=== PATIENT | female | born 1940 | race Asian ===

== ENCOUNTER 2017-08-27 08:00 | Outpatient (CLI) | payer MEDICARE, MEDICAID ==
[2017-08-27 19:09] LABS: BASOPHILS % (AUTO) 0.6 %; EOSINOPHILS # (AUTO) 0.2 10^3/uL (0.0-0.7); EOSINOPHILS % (AUTO) 2.9 %; HCT - HEMATOCRIT 37.7 % (37.0-47.0); HGB - HEMOGLOBIN 12.4 g/dL (12.0-16.0); LYMPHOCYTES % (AUTO) 26.1 %; MEAN CORPUSCULAR HEMOGLOBIN 30.7 pg (27.0-31.0); MEAN CORPUSCULAR HGB CONC 32.9 g/dL (32.0-36.0); MEAN CORPUSCULAR VOLUME 93.5 fL (81.0-99.0); MEAN PLATELET VOLUME 7.9 fL (7.9-10.8); MONOCYTES # (AUTO) 0.7 10^3/uL (0.0-1.0); NEUTROPHILS # (AUTO) 4.7 10^3/uL (1.5-6.6); NEUTROPHILS % (AUTO) 61.4 %; RED BLOOD COUNT 4.04 10^6/uL (4.20-5.40); RED CELL DISTRIBUTION WIDTH 13.5 % (12.0-15.0); UNCORRECTED WHITE BLOOD COUNT 7.6 x10^3/uL; WHITE BLOOD COUNT 7.6 x10^3/uL (4.8-10.8)
[2017-08-27 19:30] LABS: ALBUMIN/GLOBULIN RATIO 1.2 (1.0-2.2); BILIRUBIN,TOTAL 0.5 mg/dL (0.2-1.0); BUN - BLOOD UREA NITROGEN 24 mg/dL (6-20); CALCIUM 9.5 mg/dL (8.5-10.3); CARBON DIOXIDE - CO2 26 mmol/L (21-32); CHLORIDE 103 mmol/L (101-111); CREATININE 1.5 mg/dL (0.4-1.0); GFR - MDRD 34 (>89); GLUCOSE 96 mg/dL (70-100); POTASSIUM 4.1 mmol/L (3.5-5.0); SODIUM 138 mmol/L (135-145); URIC ACID 7.5 mg/dL (2.6-7.2)
== END 2017-08-27 08:01 | disposition home or self-care (01) ==
LOC: LAB.WCP 08:00
PROVIDERS: ATTEND Physician Assistant Medical
DX: R53.1 Weakness (principal); I10 Essential (primary) hypertension; M10.00 Idiopathic gout, unspecified site
CPT/HCPCS: 36415; 80053; 84443; 84550; 85025

== ENCOUNTER 2018-03-19 17:25 | Outpatient (CLI) | payer MEDICARE, MEDICAID | END 2018-03-19 17:26 | disposition critical access hospital (66) | LOC: EMS 17:25 | PROVIDERS: ATTEND Surgery | DX: I46.9 Cardiac arrest, cause unspecified (principal) | CPT/HCPCS: A0425; A0433 ==

== ENCOUNTER 2018-03-19 18:07 | Emergency (ER) | payer MEDICARE, MEDICAID ==
[2018-03-19] MEDS: EPINEPHrine ABBOJECT 1 MG/10 ML SYRINGE IVP STA ×3 (18:12→20:03)
[2018-03-19] MEDS: SODIUM BICARBONATE ABBOJECT 50 MEQ/50 ML SYRINGE IVP STA (18:18)
[2018-03-19] MEDS: CALCIUM CHLORIDE ABBOJECT 1000MG/10 ML SYRINGE IVP STA (18:19)
[2018-03-19] MEDS: SODIUM CHLORIDE 0.9% 1,000 ML IV ONE ×2 (18:24→18:35)
[2018-03-19] MEDS: EPINEPHrine 4 MG in DEXTROSE 5% 246 ML IVP STA (18:30)
--- NOTE | 2018-03-19 18:37 | XRAY Report ---
Procedure Date: 03/19/2018 Accession Number: [id number] / [id number] Procedure: XR - Chest 1 View X-Ray CPT Code: 20502 FULL RESULT: EXAM: CHEST RADIOGRAPHY EXAM DATE: 03/19/2018 06:22 PM. CLINICAL HISTORY: Cpr - resp arrest. COMPARISON: CHEST 2 VIEW PA/LAT 02/07/2016. TECHNIQUE: 1 view. FINDINGS: Lungs/Pleura: Diffuse hazy opacification of the left lung likely artifactual secondary to board. No pneumothorax. No large effusion. Mediastinum: Heart and mediastinal contours are unremarkable. Other: Endotracheal tube 1.4 cm from the ajit. IMPRESSION: Endotracheal tube 1.4 cm above the ajit. Retraction is recommended. No pneumothorax. RADIA
[2018-03-19] MEDS ORDERED: ALTEPLASE 100 MG VIAL ONE (18:45)
--- NOTE | 2018-03-19 18:49 | ED Physician Documentation ---
PD HPI CPR - Stated complaint Stated Complaint: CPR - Chief complaint Chief Complaint: Critical Care - History obtained from History obtained from: Family, EMS - History of Present Illness Timing - onset: Today Timing - onset during: Emotional event (daughter reports the patient was upset and arguing and then seemed to get pale, sat down, held at her chest, and then collapsed. Nonresponsive at that point. CPR started and EMS called. EMS found patient in PEA without pulses. Daughter says the patient had seemed to be feeling okay earlier in the day.) Preceding symptoms: Chest pain, Weakness Contributing factors: No: CAD, Diabetes Recently seen: Not recently seen Witnessed: Arrest witnessed Fall: No fall Bystander CPR: Bystander CPR EMS findings: Unresponsive, Apneic, Pulseless, PEA. 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, Epi, Sodium Bicarb, IO Advanced directive: Full code Review of Systems Unable to obtain: Unresponsive, Intubated, Other (some info from family) Constitutional: denies: Fever Cardiac: denies: Pedal edema Respiratory: denies: Cough GI: denies: Abdominal Pain, Vomiting Neurologic: denies: Focal weakness, Headache, Head injury PD PAST MEDICAL HISTORY - Past Medical History Cardiovascular: Hypertension Respiratory: None Neuro: None Endocrine/Autoimmune: None - Present Medications Home Medications: Ambulatory Orders Medication Instructions Recorded Confirmed Carvedilol [Coreg] 3.125 mg PO BID 03/19/18 03/19/18 Omeprazole [PriLOSEC] 20 mg PO DAILY 03/19/18 03/19/18 - Allergies Allergies/Adverse Reactions: Allergies Allergy/AdvReac Type Severity Reaction Status Date / Time No Known Drug Allergies Allergy Verified 03/19/18 18:46 PD ED PE NORMAL - Vitals Vital signs reviewed: Yes - General General: Other (intubated, nonresponsive. Dilated and fixed pupils. No respiratory effort. ) - Neck Neck: Other (JVD noted lying flat) - Cardiac Cardiac: Other (no cardiac sounds heard) - Respiratory Respiratory: Other (symmetric sounds with bagged respirations. No resp effort. ) - Abdomen Abdomen: No: Normal bowel sounds (no sounds. mild distension of abdomen. FAST showed no free fluid in upper abd. ) - Extremities Extremities: No edema - Neuro Neuro: Other (unresponsive) Results - Vitals Vitals: Vital Signs - 24 hr 03/19/18 03/19/18 03/19/18 18:10 18:16 18:25 Heart Rate 86 110 H 113 H Respiratory 32 H 30 H 30 H Rate Blood Pressure 191/35 H 79/35 L 93/43 L O2 Saturation 96 95 94 03/19/18 18:40 Heart Rate 106 H Respiratory 28 H Rate Blood Pressure 69/51 L O2 Saturation 90 L Oxygen O2 Source Ambu bag - EKG (time done) 18:26 Rhythm: Sinus bradycardia Intervals: Wide QRS Ischemia: ST elevation c/w ischemia (inferiorly, with lateral ischemic changes) - Labs Labs: Laboratory Tests 03/19/18 03/19/18 03/19/18 18:15 18:33 18:33 WBC 5.6 RBC 1.86 L Hgb 5.8 L* Hct 19.2 L* MCV 103.4 H MCH 31.4 H MCHC 30.4 L RDW 14.6 Plt Count 94 L MPV 7.5 L Neut # (Auto) 1.7 Lymph # (Auto) 3.7 H Jack # (Auto) 0.2 Eos # (Auto) 0.1 Baso # (Auto) 0.0 Absolute Nucleated RBC 0.05 Nucleated RBC % 1.0 Sodium 146 H Potassium 3.9 Chloride 109 Carbon Dioxide 18 L Anion Gap 19.0 H BUN 23 H Creatinine 1.6 H Estimated GFR (MDRD) 31 L Glucose 181 H POC Whole Bld Glucose 138 H Calcium 9.5 Total Bilirubin < 0.2 L AST 501 H ALT 476 H Alkaline Phosphatase 47 Total Protein 4.5 L Albumin 2.0 L Globulin 2.5 Albumin/Globulin Ratio 0.8 L Lipase 52 H - Rads (name of study) chest Radiology: Prelim report reviewed (ETT just above the ajit. Lungs inflated. ) PD MEDICAL DECISION MAKING - ED course Complexity details: reviewed results (subsequent labs after efforts stopped showed severe anemia, so consider acute massive bleed as cause of PEA as well. Consider GI? U/S did not show fluid intraperitoneal initially. ), considered differential (PEA without obvious cause. initial bedside U/S showed weak cardiac activity at rate c/w monitor. No effusion seen. upper abd without free fluid. CPR and resuscitation ongoing. Paused for ECG and this is showing likely inferior ST elevations. However, the degree of hypotension and such is unusual for that. I talked with Cardiology at [facility] who felt that thrombolytics would not be productive in this extremis. The rescuscitative efforts were not improving BP and the heart rhythm degraded from tachy to agonal. Bedside U/S now showing cardiac standstill. Family counseled ongoing during the efforts ( they were present in ED room) and the rescuscitation was stopped due to nonresponsiveness and cardiac standstill, length of efforts.), d/w patient - Critical Care Time(min): 40 Time Includes: Direct patient care, Coordinate care, Medical consult, Family consult for tx dec Data interpretation: CXR Procedures excluded from critical care time: Intraosseous, EKG - Sepsis Event Vital Signs: Vital Signs - 24 hr 03/19/18 03/19/18 03/19/18 18:10 18:16 18:25 Heart Rate 86 110 H 113 H Respiratory 32 H 30 H 30 H Rate Blood Pressure 191/35 H 79/35 L 93/43 L O2 Saturation 96 95 94 03/19/18 18:40 Heart Rate 106 H Respiratory 28 H Rate Blood Pressure 69/51 L O2 Saturation 90 L Oxygen O2 Source Ambu bag Departure - Departure Disposition: 20 Clinical Impression: Sudden cardiac arrest, Abnormal ECG, Severe anemia, PEA (Pulseless electrical activity) Condition: Critical Record reviewed to determine appropriate education?: Yes Discharge Date/Time: 03/19/18 20:07
[2018-03-19 18:58] LABS: BASOPHILS % (AUTO) 0.1 %; EOSINOPHILS # (AUTO) 0.1 10^3/uL (0.0-0.7); LYMPHOCYTES # (AUTO) 3.7 10^3/uL (1.5-3.5); LYMPHOCYTES % (AUTO) 65.1 %; MEAN CORPUSCULAR HEMOGLOBIN 31.4 pg (27.0-31.0); MEAN CORPUSCULAR HGB CONC 30.4 g/dL (32.0-36.0); MEAN CORPUSCULAR VOLUME 103.4 fL (81.0-99.0); MEAN PLATELET VOLUME 7.5 fL (7.9-10.8); MONOCYTES # (AUTO) 0.2 10^3/uL (0.0-1.0); MONOCYTES % (AUTO) 3.9 %; NEUTROPHILS # (AUTO) 1.7 10^3/uL (1.5-6.6); NEUTROPHILS % (AUTO) 29.9 %; PLT - PLATELET COUNT 94 10^3/uL (130-450); RED BLOOD COUNT 1.86 10^6/uL (4.20-5.40); RED CELL DISTRIBUTION WIDTH 14.6 % (12.0-15.0); WHITE BLOOD COUNT 5.6 x10^3/uL (4.8-10.8)
[2018-03-19 19:01] LABS: HGB - HEMOGLOBIN 5.8 g/dL (12.0-16.0)
[2018-03-19 19:12] LABS: ALBUMIN/GLOBULIN RATIO 0.8 (1.0-2.2); ALKALINE PHOSPHATASE 47 IU/L (42-121); ALT ALANINE AMINOTRANSFERASE 476 IU/L (10-60); AST ASPARTATE AMINOTRANSFERASE 501 IU/L (10-42); BILIRUBIN,TOTAL < 0.2 mg/dL (0.2-1.0); BUN - BLOOD UREA NITROGEN 23 mg/dL (6-20); CALCIUM 9.5 mg/dL (8.5-10.3); CARBON DIOXIDE - CO2 18 mmol/L (21-32); CHLORIDE 109 mmol/L (101-111); CREATININE 1.6 mg/dL (0.4-1.0); GFR - MDRD 31 (>89); GLUCOSE 181 mg/dL (70-100); LIPASE 52 U/L (22-51); SODIUM 146 mmol/L (135-145); TOTAL PROTEIN 4.5 g/dL (6.7-8.2)
[2018-03-19 19:30] VITALS: BP 69/51
== END 2018-03-19 20:07 | disposition expired ==
LOC: ED 18:07
DX: I46.9 Cardiac arrest, cause unspecified (principal); I48.91 Unspecified atrial fibrillation; R94.31 Abnormal electrocardiogram [ECG] [EKG]; D64.9 Anemia, unspecified; I10 Essential (primary) hypertension
CPT/HCPCS: 36415; 71045; 80053; 83690; 84484; 85025; 92950; 93005; 96374; 96375; 96376; 99285; 99291